=== PATIENT | male | born 1955 | race Caucasian/White ===

== ENCOUNTER → 2016-05-28 | Outpatient (CLI) | payer BC ==
--- NOTE | 2016-05-28 20:14 | PN ---
60-year-old gentleman who has been followed in the sleep center for treatment of obstructive sleep apnea/hypopnea syndrome. Patient is on treatment with CPAP every night for the whole night. I checked his CPAP unit. CPAP pressure is 12 cm of water. Usage is 30 out of 30 nights for more than 4 hours. No snoring with the machine. No sleepiness during the day. [place] Sleepiness Scale is 6. MEDICATIONS: 1. Losartan. 2. Potassium supplement. During physical exam gentleman without distress. VITAL SIGNS: BP 142/87, HR 78, RR 16. Height 6 feet 1 inch, weight 296. BMI 39.0. Temperature 98.0 oxygen saturation at room air 95%. HEENT: PERRLA, EOMI evaluation of oropharynx showed low position of soft palate, Mallampati 4. HEENT: PERRLA, EOMI. LUNGS: Clear. HEART: S1, S2 regular. ABDOMEN: Obese. EXTREMITIES: No edema. CENTRAL NERVOUS SYSTEM: No focal deficits. IMPRESSION: 1. Obstructive sleep apnea/hypopnea syndrome on control with CPAP at 12 cm of water. Patient demonstrated 100% compliance with treatment, benefiting from treatment. 2. Obesity. Patient lost weight on 5 pounds since last year. 3. Hypertension. 4. History of acid reflux in the past. 5. Patient grinding teeth using mouth guard. PLAN: 1. Continue treatment with CPAP every night for the whole night. 2. Prescription for all necessary CPAP supplies, including tube, mask, filters. 3. Continue losing weight. 4. Sleep hygiene with regular time in bed for at least 8 hours. 5. No driving if feeling any sleepiness. Thank you very much for allowing me to participate in the management of your patient. Sincerely, Bharathi Toure MD, PhD, FAASM. Diplomat of [place], Sleep Medicine Board by [place] of [employer] Medicine Seam Sewer of [facility] [place]
== END | disposition home or self-care (01) ==
LOC: SLEEP 16:47
PROVIDERS: ATTEND Internal Medicine
DX: G47.33 Obstructive sleep apnea (adult) (pediatric) (principal); E66.9 Obesity, unspecified; I10 Essential (primary) hypertension; Z87.898 Personal history of other specified conditions; Z79.899 Other long term (current) drug therapy; Z68.39 Body mass index [BMI] 39.0-39.9, adult

== ENCOUNTER → 2018-04-21 | Outpatient (CLI) | payer BC ==
--- NOTE | 2018-04-21 16:59 | PN ---
PROGRESS NOTE DATE OF SERVICE: 04/21/2018 This patient is a 62-year-old gentleman who has been followed in Sleep Center for treatment of obstructive sleep apnea-hypopnea syndrome. Patient continues to use his CPAP equipment every night for the whole night without significant problems. No snoring with the machine. [place] Sleepiness Scale today is 6. I checked the patient's CPAP unit. CPAP pressure is 12 cm of water. Usage is 100% of the nights for more than 4 hours, average usage 6.42 hours. MEDICATIONS: Losartan. PHYSICAL EXAMINATION: GENERAL: A pleasant gentleman without distress. VITAL SIGNS: BP 150/86, HR 76, RR 18, height 6 feet 1 inch, weight 288.6; 4 pounds more than during the previous visit but 8 pounds less than the visit 2 years ago. Body mass index 37.9, temperature 98.2, oxygen saturation at room air 94% HEENT: PERRLA, EOMI. Evaluation of oropharynx showed tongue protrudes midline. Low position of soft palate. NECK: Supple. No JVD. Thyroid is not palpable. LUNGS: Clear to percussion and to auscultation. Good air exchange. No wheezing or rhonchi. HEART: S1, S2 regular. No murmurs, gallops or rubs. ABDOMEN: Slightly obese. EXTREMITIES: No clubbing or cyanosis. POWER CLEANER OPERATOR: Awake, alert, and oriented X3. Cranial nerves 2 to 7 intact. There is no fasciculation or atrophy. noted. No focal deficits observed. IMPRESSION: 1. Obstructive sleep apnea-hypopnea syndrome. Patient demonstrated 100% compliance with treatment, benefitting from treatment. 2. Obesity. 3. Hypertension. 4. History of acid reflux in the past. 5. Patient continues to use mouth guard for prevention of grinding teeth. PLAN: 1. Patient will continue to use CPAP equipment every night for the whole night. 2. Prescription to replace CPAP unit. 3. We will maintain all necessary prescriptions for CPAP supplies. 4. Losing weight. 5. Sleep hygiene with regular time in bed for at least 8 hours. 6. No driving if feeling any sleepiness. Thank you very much for allowing me to participate in the management of your patient. Sincerely, Bharathi Toure MD, PhD, FAASM Diplomat of [place] [employer] Special[employer] Board of Internal Medicine [employer] Mechanic of [facility] [place] MMODL / IJN: [id number] /
== END ==
LOC: SLEEP 15:46
PROVIDERS: ATTEND Internal Medicine
DX: G47.33 Obstructive sleep apnea (adult) (pediatric) (principal); E66.9 Obesity, unspecified; I10 Essential (primary) hypertension; K21.9 Gastro-esophageal reflux disease without esophagitis; Z99.89 Dependence on other enabling machines and devices; Z79.899 Other long term (current) drug therapy

== ENCOUNTER → 2018-09-14 | Outpatient (CLI) | payer BC ==
--- NOTE | 2018-09-14 17:34 | PN ---
PROGRESS NOTE DATE OF SERVICE: 09/14/2018 This patient is a 62-year-old gentleman who has been followed in Sleep Center for treatment of obstructive sleep apnea-hypopnea syndrome. Recently the patient received a new CPAP unit. The patient is able to use CPAP equipment every night for the whole night. He likes his new machine. No problems related to humidity or pressure. I checked his CPAP unit. CPAP pressure is 12 cm of water. Usage is 100% of the time; 30/30 nights for more than 4 hours. Average usage 6.5 hours. Leak is borderline at 36 L/minute. The patient is using his nasal pillows. Possibly patient may open his mouth sometimes, although there is no dryness in his mouth. Apnea-hypopnea index 0.7, which is absolutely normal. MEDICATIONS: Losartan and potassium supplement. PHYSICAL EXAMINATION: GENERAL: A pleasant patient in no distress. VITAL SIGNS: BP 154/92, HR 62, RR 16, weight 293, temperature 97.8, oxygen saturation at room air 97%. HEENT: PERRLA, EOMI. Evaluation of oropharynx showed tongue protrudes midline. Low position of soft palate. NECK: Supple. No JVD. Thyroid is not palpable. LUNGS: Clear to percussion and to auscultation. Good air exchange. No wheezing or rhonchi. HEART: S1, S2 regular. No murmurs, gallops or rubs. ABDOMEN: Obese. EXTREMITIES: No clubbing or cyanosis. SQL CONSULTANT: Awake, alert, and oriented X3. Cranial nerves 2 to 7 intact. There is no fasciculation or atrophy. noted. No focal deficits observed. IMPRESSION: 1. Obstructive sleep apnea-hypopnea syndrome. The patient demonstrated 100% compliance with treatment with his new CPAP unit. Normal respiration on CPAP, benefitting from treatment. 2. Obesity. 3. Hypertension. 4. History of acid reflux in the past. 5. History of grinding teeth. Patient uses a mouth guard. PLAN: 1. Patient will continue to use CPAP equipment every night for the whole night. 2. Losing weight. 3. Sleep hygiene with regular time in bed for at least 8 hours. 4. Precautions related to driving. No driving if feeling any sleepiness. 5. We will maintain all necessary prescriptions for CPAP supplies, including Sims FX nasal pillows, tubes, filters. 6. Follow-up visit in one year or earlier if the patient has any problems. Thank you very much for allowing me to participate in the management of your patient. Sincerely, Bharathi Toure MD, PhD, FAASM Diplomat of [employer] Board [employer] Specialties [employer] Board of Internal Medicine Bingo Cashier of [facility] [place] MMMARYANN / HERIBERTO: [id number] /
== END ==
LOC: SLEEP 15:52
PROVIDERS: ATTEND Internal Medicine
DX: G47.33 Obstructive sleep apnea (adult) (pediatric) (principal); E66.9 Obesity, unspecified; I10 Essential (primary) hypertension; K21.9 Gastro-esophageal reflux disease without esophagitis; G47.63 Sleep related bruxism; Z99.89 Dependence on other enabling machines and devices; Z79.899 Other long term (current) drug therapy

== ENCOUNTER → 2019-04-06 | Outpatient (CLI) | payer BC ==
--- NOTE | 2019-04-06 17:41 | PN ---
PROGRESS NOTE DATE OF SERVICE: 04/06/2019 This patient is a 63-year-old gentleman who has been followed in the sleep center for treatment of obstructive sleep apnea-hypopnea syndrome. The patient successfully continues to use CPAP equipment every night for the whole night. Sometimes his hears some noise of breathing during the night. [place] Sleepiness Scale today is 7. I checked his CPAP unit. CPAP pressure is 12 cm of water. Usage is 30/30 nights for more than 4 hours with average usage 6.8 hours per night. Leak is 28 L/minute, which is high for the nasal pillow mask. Apnea-hypopnea index at the same time is only 0.5, which is absolutely normal. CURRENT MEDICATIONS: Losartan and potassium supplement. PHYSICAL EXAMINATION: GENERAL: A pleasant patient in no distress. VITAL SIGNS: BP 137/79, HR 66, RR 16. Height 6 feet 2 inches, weight 292.4, body mass index 37.4. Temperature 98.1, oxygen saturation at room air 96%. HEENT: PERRLA, EOMI. Evaluation of oropharynx showed tongue protrudes midline. Low position of soft palate. Mallampati IV. NECK: Supple. No JVD. Thyroid is not palpable. LUNGS: Clear to percussion and to auscultation. Good air exchange. No wheezing or rhonchi. HEART: S1, S2 regular. No murmurs, gallops or rubs. ABDOMEN: Obese. EXTREMITIES: No clubbing or cyanosis. REVENUE STAMP CLERK: Awake, alert, and oriented X3. Cranial nerves 2 to 7 intact. There is no fasciculation or atrophy noted. No focal deficits observed. IMPRESSION: 1. Obstructive sleep apnea-hypopnea syndrome. Patient demonstrated 100% compliance with treatment, benefitting from treatment. 2. High leak reading from the machine. Possibly patient opens his mouth. 3. Obesity. 4. Hypertension. 5. History of acid reflux. 6. History of grinding teeth. PLAN: 1. Patient will continue to use CPAP equipment every night for the whole night. 2. Prescription for chin strap. 3. Other options might include a full-face mask, but I believe it would be less comfortable for the patient. 4. No driving if feeling any sleepiness. 5. Sleep hygiene with regular time in bed for 7-1/2 to 8 hours. 6. Follow-up visit in one year, or earlier if the patient has any problems. 7. I will maintain prescriptions for all necessary CPAP supplies, including mask, tube, filters. Thank you very much for allowing me to participate in the management of your patient. Sincerely, Bharathi Toure MD, PhD, FAASM Diplomat of [place] [employer] Medical Specialties [employer] Board of Internal Medicine Web Sizer of [facility] [place] MMODL / HERIBERTO: [id number] /
== END | disposition home or self-care (01) ==
LOC: SLEEP 16:14
PROVIDERS: ATTEND Internal Medicine
DX: G47.33 Obstructive sleep apnea (adult) (pediatric) (principal); E66.9 Obesity, unspecified; I10 Essential (primary) hypertension; Z68.37 Body mass index [BMI] 37.0-37.9, adult; Z99.89 Dependence on other enabling machines and devices; Z87.19 Personal history of other diseases of the digestive system; Z79.899 Other long term (current) drug therapy

== ENCOUNTER → 2020-04-11 | Outpatient (CLI) | payer BC ==
--- NOTE | 2020-04-11 20:58 | SFUN ---
SLEEP CENTER FOLLOW UP NOTE DATE OF SERVICE: 04/11/2020 This patient is a 64-year-old gentleman who has been followed in the sleep center for treatment of obstructive sleep apnea-hypopnea syndrome. The patient continues to use CPAP equipment every night for the whole night. According to his , sometimes he still has episodes of stopped breathing during sleep. [place] Sleepiness Scale today is 6. I checked his CPAP unit. CPAP pressure is 12 cm of water. Usage is 30/30 nights for more than 4 hours with average usage 6.5 hours per night. Leak is 23 L/minute, which is borderline. Apnea-hypopnea index is 0.7, which is perfect. The patient's weight has decreased by about 11 pounds since his previous visit. MEDICATIONS: Losartan 100 mg once a day. PHYSICAL EXAMINATION: GENERAL: A pleasant patient in no distress. VITAL SIGNS: BP 143/79, HR 64, RR 15, height 6 feet 1 inch, weight 281, BMI 37.0, temperature 98.5, oxygen saturation at room air 98%. HEENT: PERRLA, EOMI. Evaluation of oropharynx showed tongue protrudes midline. Extremely low position of soft palate. Mallampati IV. NECK: Supple. No JVD. Thyroid is not palpable. LUNGS: Clear to percussion and to auscultation. Good air exchange. No wheezing or rhonchi. HEART: S1, S2 regular. No murmurs, gallops or rubs. ABDOMEN: Obese. EXTREMITIES: No clubbing or cyanosis. PRESS HAND SUPERVISOR: Awake, alert, and oriented X3. Cranial nerves 2 to 7 intact. There is no fasciculation or atrophy. noted. No focal deficits observed. IMPRESSION: 1. Obstructive sleep apnea-hypopnea syndrome. The patient demonstrated 100% compliance with treatment, benefitting from treatment. 2. Episodes of stopped breathing during sleep according to the patient's , although apnea-hypopnea index reading from the machine is normal. 3. Obesity. 4. Hypertension. 5. History of acid reflux. 6. History of grinding teeth. 7. Sometimes the patient complains of noise from the machine. PLAN: 1. I changed the regimen of the CPAP to automatic. Range of the pressure is 9 to 16 cm of water. 2. Patient will continue to use PAP equipment every night for the whole night. 3. Sleep hygiene with regular time in bed for at least 7-1/2 to 8 hours. 4. Precautions related to driving. No driving if feeling sleepiness. 5. I will maintain all necessary prescription for PAP supplies including mask, tube, filters. 6. Watching weight. 7. Follow-up visit in 6 months or earlier if patient has any problems. 8. Sometimes the patient complains of noise from the machine. The machine should be checked and replaced, if necessary. Thank you very much for allowing me to participate in the management of your patient. Sincerely, Bharathi Torue MD, PhD, FAASM Diplomat of [place] Board of Medical Specialties Belgian Board of Internal Medicine Data Control Clerk Supervisor of [facility] [place] MMODL / IJN: [id number] /
== END | disposition home or self-care (01) ==
LOC: SLEEP 16:30
PROVIDERS: ATTEND Internal Medicine
DX: G47.33 Obstructive sleep apnea (adult) (pediatric) (principal); Z53.9 Procedure and treatment not carried out, unspecified reason

== ENCOUNTER 2021-01-16 07:40 | Day surgery (SDC) | payer BC ==
[2021-01-13 08:48] VITALS: BMI 34.9
[2021-01-16] MEDS ORDERED: LACTATED RINGERS 1,000 ML IV SCH (07:46)
[2021-01-16 08:38] VITALS: TEMP 97.7
[2021-01-16] MEDS ORDERED: LIDOCAINE 1% (10MG/ML) FOR IV START INTRADERMA ONE (08:44)
--- NOTE | 2021-01-16 09:27 | P.GSHP ---
History of Present Illness H&P Date: 01/16/21 Chief Complaint: Screening colonoscopy This is a 65-year-old male who presents today for screening colonoscopy. Patient denies a significant GI complaints. Past Medical History Past Medical History: Hypertension, Sleep Apnea/CPAP/BIPAP Additional Past Medical History / Comment(s): C-PAP MACHINE, BPH. History of Any Multi-Drug Resistant Organisms: None Reported Past Surgical History: Tonsillectomy Additional Past Surgical History / Comment(s): COLONOSCOPY Past Anesthesia/Blood Transfusion Reactions: No Reported Reaction Past Psychological History: No Psychological Hx Reported Smoking Status: Former smoker Past Alcohol Use History: None Reported Additional Past Alcohol Use History / Comment(s): QUIT SMOKING OVER 25 YEARS AGO. Past Drug Use History: None Reported - Past Family History Mother Family Medical History: No Reported History Medications and Allergies Home Medications Medication Instructions Recorded Confirmed Type Losartan Potassium 100 mg PO DAILY 01/13/21 01/16/21 History Multivit-Min/FA/Lycopen/Lutein 1 each PO DAILY 01/13/21 01/16/21 History [Centrum Silver Men Tablet] Vit C/E/Zn/Coppr/Lutein/Zeaxan 1 each PO DAILY 01/13/21 01/16/21 History [Preservision Areds 2 Softgel] Allergies Allergy/AdvReac Type Severity Reaction Status Date / Time No Known Allergies Allergy Verified 01/13/21 08:51 Surgical - Exam Vital Signs Temp Pulse Resp BP Pulse Ox 97.7 F 68 16 199/91 97 01/16/21 08:26 01/16/21 08:26 01/16/21 08:26 01/16/21 08:26 01/16/21 08:26 - General well developed, well nourished, no distress - Eyes PERRL - ENT normal pinna - Neck no masses - Respiratory normal expansion - Cardiovascular Rhythm: regular - Abdomen Abdomen: soft, non tender Assessment and Plan Assessment: We'll perform screening colonoscopy.
[2021-01-16] MEDS ORDERED: PROPOFOL 10 MG/ML 20 ML VIAL IV ONE (09:29)
--- NOTE | 2021-01-16 09:44 | P.OP ---
Date of Procedure: 01/16/21 Preoperative Diagnosis: Screening colonoscopy Postoperative Diagnosis: Mild diverticulosis Procedure(s) Performed: Colonoscopy Anesthesia: MAC Surgeon: Mitch Sierra Pathology: none sent Condition: stable Disposition: PACU Description of Procedure: The patient's placed on the endoscopy table lateral position. He received IV sedation. Digital rectal exam was performed which revealed no abnormalities. Possible colonoscope was then placed patient anus and passed throughout the entire colon. The ileocecal valve was visualized. Cecum, ascending and transverse colon appeared normal. The descending; was mild diverticular changes. Scope was then brought back the rectum this appeared normal. Scope withdrawn the patient.
[2021-01-16 10:04] VITALS: BP 185/63; PULSE 68; RESP 16
== END 2021-01-16 10:20 | disposition home or self-care (01) ==
LOC: ORWHC2ENDO 07:40
PROVIDERS: ATTEND Surgery
DX: Z12.11 Encounter for screening for malignant neoplasm of colon (principal); I10 Essential (primary) hypertension; G47.30 Sleep apnea, unspecified; N40.0 Benign prostatic hyperplasia without lower urinary tract symptoms; Z98.890 Other specified postprocedural states; Z87.891 Personal history of nicotine dependence; K57.30 Diverticulosis of large intestine without perforation or abscess without bleeding
CPT/HCPCS: J2704; G0121

== ENCOUNTER → 2021-05-22 | Outpatient (CLI) | payer BC ==
--- NOTE | 2021-05-22 17:24 | SFUN ---
SLEEP CENTER FOLLOW UP NOTE DATE OF SERVICE: 05/22/2021 This 65-year-old gentleman has been followed in Sleep Center for treatment of obstructive sleep apnea-hypopnea syndrome. I saw this patient several months ago, but because his machine was noisy, he received a loaner, and now his machine has been fixed and he has received it back. Now he is satisfied, using the machine every night. The machine does not create any noise. Everything works well. [place] Sleepiness Scale today is 7, which is in normal range. I checked his CPAP unit. Range of the pressure is 9 to 20. Usage for the last month is 03/25 nights, but the patient just received his machine recently. Leak is 12 L/minute. Apnea-hypopnea index 0.6. MEDICATIONS: Losartan 100 mg once a day. PHYSICAL EXAMINATION: GENERAL: Pleasant patient in no distress. VITAL SIGNS: BP 153/83, HR 64, RR 16, height 6 feet 1 inch, weight 275, body mass index 36.2, temperature 98.6, oxygen saturation at room air 98%. HEENT: PERRLA, EOMI, evaluation of oropharynx showed tongue protrudes midline. Extremely low position of soft palate; Mallampati IV. NECK: Supple, no JVD. Thyroid is not palpable. LUNGS: Clear to percussion and to auscultation. Good air exchange. No wheezing or rhonchi. HEART: S1, S2 regular. No murmurs, gallops, or rubs. ABDOMEN: Soft and nontender. Bowel sounds are present. No organomegaly appreciated. EXTREMITIES: No clubbing or cyanosis. FLOOR CLERK: Awake, alert, and oriented X3. Cranial nerves 2 to 7 intact. There is no fasciculation or atrophy. noted. No focal deficits observed. IMPRESSION: 1. Obstructive sleep apnea-hypopnea syndrome. Patient demonstrated good compliance with treatment. Normal respiration on CPAP. 2. Hypertension. 3. History of acid reflux. 4. Obesity. 5. History of grinding teeth. PLAN: 1. Patient will continue to use PAP equipment every night for the whole night. 2. Sleep hygiene with regular time in bed for at least 7-1/2 to 8 hours. 3. Precautions related to driving. No driving if feeling sleepiness. 4. I will maintain all necessary prescription for PAP supplies including mask, tube, filters. 5. Watching weight. 6. Follow-up visit in 6 months or earlier if patient has any problems. Thank you very much for allowing me to participate in the management of your patient. Sincerely, Bharathi Toure MD, PhD, FAASM Diplomat of [place] Board of Medical Specialties Sleep Medicine Board of [place] Board of Internal Medicine Earth Science Technical Officer of [facility] [place] MMMARYANN / HERIBERTO: [id number] /
== END ==
LOC: SLEEP 16:34
PROVIDERS: ATTEND Internal Medicine
DX: G47.33 Obstructive sleep apnea (adult) (pediatric) (principal); I10 Essential (primary) hypertension; K21.9 Gastro-esophageal reflux disease without esophagitis; E66.9 Obesity, unspecified; Z68.36 Body mass index [BMI] 36.0-36.9, adult; Z79.899 Other long term (current) drug therapy

== ENCOUNTER → 2023-01-14 | Outpatient (CLI) | payer BC ==
--- NOTE | 2023-01-14 17:11 | P.PN ---
Subjective DATE: 01/14/2023 FOLLOW UP VISIT. Patient with obstructive sleep apnea hypopnea syndrome return to sleep center for follow-up visit. Information from previous visit have been reviewed. Patient is using PAP equipment every night for the whole night, getting PAP supplies in time. The patient does not have significant problems with the mask, PAP unit and humidification. [place] sleepiness scale is, which is normal. I checked information from PAP unit. PAP unit pressure 9-20, average 11.2 cm H2O. Usage is 100 % for more then 4 hours, average 6.5 hours per night. Leak is 12 l/m, which is in acceptable range. Apnea Hypopnea Index is 0.6, which is normal. MEDICATIONS:1. Losartan 100 mg once a day 2. Flomax 0.4 mg once a day During physical exam: GENERAL: A pleasant patient without any distress. VITAL SIGNS: BP 148/77, HR 64, RR 16 , weight 250.6, temperature 98.1, oxygen saturation at room air 98 % . HEENT: PERRLA, EOMI.low position of soft palate, Mallapati 4 . NECK: Supple. No JVD. LUNGS: Clear to percussion and to auscultation. Good air exchange. No wheezing or rhonchi. HEART: S1, S2 regular. ABDOMEN: Soft and nontender.[] EXTREMITIES: No clubbing or cyanosis. GEOPHYSICAL MANAGER: Awake, alert, and oriented x3. No focal deficit. Impressions: 1. Obstructive sleep apnea-hypopnea syndrome. Patient demonstrated great compliance with treatment, benefiting from treatment. 2. Mild obesity, patient lost 17 pounds since previous visit. 3. Hypertension. 4. History of acid reflux. 5. BPH. 6. History of grinding teeth. Plan: 1. Continue using PAP equipment every night for the whole night. 2. To change air filter at least 1-2 times per month. 3. PAP unit should stay lower then position of the head. 4. Advised patient to remove all remaining water from humidifier canister daily and make it dry after each usage. Refill canister with fresh distilled water before each usage. 5. Sleep hygiene with regular time in bed for at least 8 hours. 6. Precautions related to driving. No driving if feel any sleepiness. 7. I will maintain prescription for PAP supplies including mask, tube, filters. 8. Follow up visit in 6 months or earlier if patient has any problems. 9. Watching weight. Thank you very much for allowing me to participate in the management of your patient. Bharathi Toure MD, PhD, FAASM. Diplomat of [place] Board of Sleep Medicine, Sleep Medicine Board by [place] Board of Internal Medicine Assembly Supervisor of [facility] [place]
== END ==
LOC: 3 N SLEEP 16:20
PROVIDERS: ATTEND Internal Medicine
DX: G47.33 Obstructive sleep apnea (adult) (pediatric) (principal); E66.9 Obesity, unspecified; I10 Essential (primary) hypertension; K21.9 Gastro-esophageal reflux disease without esophagitis; N40.0 Benign prostatic hyperplasia without lower urinary tract symptoms; G47.63 Sleep related bruxism; Z79.899 Other long term (current) drug therapy; Z99.89 Dependence on other enabling machines and devices
CPT/HCPCS: 99212

== ENCOUNTER → 2023-05-10 | Outpatient (CLI) | payer BC ==
--- NOTE | 2023-05-10 11:00 | P.PN ---
Subjective DATE: 05/10/2023 FOLLOW UP VISIT. Patient with obstructive sleep apnea hypopnea syndrome return to sleep center for follow-up visit. Information from previous visit have been reviewed. This is first visit after patient received new CPAP unit. Patient is using PAP equipment every night for the whole night, getting PAP supplies in time. The patient does not have significant problems with the mask, PAP unit and humidification. [place] sleepiness scale is 10, which is borderline. I checked information from PAP unit. PAP unit pressure 9-14, average 11.1 cm H2O. Usage is 100 % for more then 4 hours, average 6.8 hours per night. Leak is 9.2 l/m, which is in acceptable range. Apnea Hypopnea Index is 0.9, which is normal. MEDICATIONS:1. Flomax 0.4 mg once a day 2. Losartan 100 mg once a day During physical exam: GENERAL: A pleasant patient without any distress. VITAL SIGNS: BP 154/77, HR 62, RR 12 , weight 250.8, temperature 98.0, oxygen saturation at room air 96 % . HEENT: PERRLA, EOMI.low position of soft palate, Mallapati 4 . NECK: Supple. No JVD. LUNGS: Clear to percussion and to auscultation. Good air exchange. No wheezing or rhonchi. HEART: S1, S2 regular. ABDOMEN: Soft and nontender.[] EXTREMITIES: No clubbing or cyanosis. DRIER OPERATOR HEAD: Awake, alert, and oriented x3. No focal deficit. Impressions: 1. Obstructive sleep apnea-hypopnea syndrome. Patient demonstrated great compliance with treatment, benefiting from treatment. 2. Hypertension. 3. BPH. 4. History of acid reflux. 5. Mild obesity, no changes of weight compared with previous visit. 6. History of grinding teeth. Plan: 1. Continue using PAP equipment every night for the whole night. 2. To change air filter at least 1-2 times per month. 3. PAP unit should stay lower then position of the head. 4. Advised patient to remove all remaining water from humidifier canister daily and make it dry after each usage. Refill canister with fresh distilled water before each usage. 5. Sleep hygiene with regular time in bed for at least 8 hours. 6. Precautions related to driving. No driving if feel any sleepiness. 7. I will maintain prescription for PAP supplies including mask, tube, filters. 8. Watching weight. 9. Follow up visit in 6 months or earlier if patient has any problems. Thank you very much for allowing me to participate in the management of your patient. Bharathi Toure MD, PhD, FAASM. Diplomat of [place] Board of Sleep Medicine, Sleep Medicine Board by [place] [employer] Medicine Sales Administrator of [facility] [place]
== END ==
LOC: 3 N SLEEP 10:23
PROVIDERS: ATTEND Internal Medicine
DX: G47.33 Obstructive sleep apnea (adult) (pediatric) (principal); I10 Essential (primary) hypertension; N40.0 Benign prostatic hyperplasia without lower urinary tract symptoms; E66.9 Obesity, unspecified; K21.9 Gastro-esophageal reflux disease without esophagitis; G47.63 Sleep related bruxism; Z99.89 Dependence on other enabling machines and devices; Z79.899 Other long term (current) drug therapy
CPT/HCPCS: 99212

== ENCOUNTER → 2023-12-23 | Outpatient (CLI) | payer BC ==
[2023-12-23 16:50] VITALS: BP 147/87; PULSE 54; RESP 12; TEMP 97.9
--- NOTE | 2023-12-23 17:25 | P.PROGSL ---
Subjective DATE: 12/23/2023 FOLLOW UP VISIT. Patient with obstructive sleep apnea hypopnea syndrome return to sleep center for follow-up visit. Information from previous visit have been reviewed. Patient is using PAP equipment every night for the whole night, getting PAP supplies in time. The patient does not have significant problems with the mask, PAP unit and humidification. [place] sleepiness scale is 7, which is normal. I checked information from PAP unit. PAP unit pressure 9-14, average 10.2 cm H2O. Usage is 100% for more then 4 hours, average 6.2 hours per night. Leak is 20 l/m, which is in acceptable range. Apnea Hypopnea Index is 0.6, which is normal. MEDICATIONS have been reviewed, please see below. During physical exam: GENERAL: A pleasant patient without any distress. VITAL SIGNS: Please see below, weight is 264.6 lbs. HEENT: PERRLA, EOMI.low position of soft palate, Mallapati 4 . NECK: Supple. No JVD. LUNGS: Clear to percussion and to auscultation. Good air exchange. No wheezing or rhonchi. HEART: S1, S2 regular. ABDOMEN: Soft and nontender. Slightly obese EXTREMITIES: No clubbing or cyanosis. LAMP DEVELOPER: Awake, alert, and oriented x3. No focal deficit. Impressions: 1. Obstructive sleep apnea-hypopnea syndrome. Patient demonstrated great compliance with treatment, benefiting from treatment. 2. Obesity, BMI 34.8, patient increased weight on 11 pounds comparing with previous visit. 3. Hypertension. 4. BPH. 5. History of grinding teeth. 6. History of acid reflux. Plan: 1. Continue using PAP equipment every night for the whole night. 2. Sleep hygiene with regular time in bed for at least 7.5-8 hours 3. PAP unit should stay lower then position of the head. 4. Advised patient to remove all remaining water from humidifier canister daily and make it dry after each usage. Refill canister with fresh distilled water before each usage. 5. Watching and losing weight. 6. Precautions related to driving. No driving if feel any sleepiness. 7. I will maintain prescription for PAP supplies including mask, tube, filters. 8. Follow up visit in 6 months or earlier if patient has any problems. Thank you very much for allowing me to participate in the management of your patient. Bharathi Toure MD, PhD, FAASM. Diplomat of [employer], Sleep Medicine Board by [employer] Plant Utility Person of [facility] [place] Objective - Vital Signs Vital Signs: Vital Signs Temp 97.9 F 12/23/23 16:48 Pulse 54 L 12/23/23 16:48 Resp 12 12/23/23 16:48 BP 147/87 12/23/23 16:48 Pulse Ox 98 12/23/23 16:48 FiO2 Home Medications: Home Medications Medication Instructions Recorded Confirmed Type Losartan Potassium 100 mg PO DAILY 01/13/21 12/23/23 History Mv-Min/Folic/K1/Lycopen/Lutein 1 each PO DAILY 01/13/21 12/23/23 History [Centrum Silver Men Tablet] Vit C/E/Zn/Coppr/Lutein/Zeaxan 1 each PO DAILY 01/13/21 12/23/23 History [Preservision Areds 2 Softgel] Tamsulosin [Flomax] 0.4 mg PO DAILY 12/23/23 12/23/23 History
== END ==
LOC: 3 N SLEEP 16:20
PROVIDERS: ATTEND Internal Medicine
CPT/HCPCS: 99212

== ENCOUNTER → 2024-09-07 | Outpatient (CLI) | payer MEDICARE ==
[2024-09-07 17:16] VITALS: BP 149/81; PULSE 59; RESP 16; TEMP 97.8
--- NOTE | 2024-09-07 17:26 | P.PROGSL ---
Subjective DATE: 09/07/2024 FOLLOW UP VISIT. Patient with obstructive sleep apnea hypopnea syndrome return to sleep center for follow-up visit. Information from previous visit have been reviewed. Patient is using PAP equipment every night for the whole night, getting PAP supplies in time. The patient does not have significant problems with the mask, PAP unit and humidification. Orange sleepiness scale is 6, which is normal. I checked information from PAP unit. PAP unit pressure 9-14, average 10.6 cm H2O. Usage is 100% for more then 4 hours, average 7.8 hours per night. Leak is 10 l/m, which is in acceptable range. Apnea Hypopnea Index is 1.1, which is normal. MEDICATIONS have been reviewed, please see below. During physical exam: GENERAL: A pleasant patient without any distress. VITAL SIGNS: Please see below, weight is 261 lbs. HEENT: PERRLA, EOMI.low position of soft palate, Mallapati 4 . NECK: Supple. No JVD. LUNGS: Clear to percussion and to auscultation. Good air exchange. No wheezing or rhonchi. HEART: S1, S2 regular. ABDOMEN: Soft and nontender.[] EXTREMITIES: No clubbing or cyanosis. LIBRARY CONSULTANT: Awake, alert, and oriented x3. No focal deficit. Impressions: 1. Obstructive sleep apnea-hypopnea syndrome. Patient demonstrated great compliance with treatment, benefiting from treatment. 2. Hypertension. 3. BPH. 4. Obesity mild, BMI 34.4, patient lost 3 pounds comparing with previous visit. 5. Acid reflux. 6. History of grinding teeth. Plan: 1. Continue using PAP equipment every night for the whole night. 2. Sleep hygiene with regular time in bed for at least 7.5-8 hours 3. PAP unit should stay lower then position of the head. 4. Advised patient to remove all remaining water from humidifier canister daily and make it dry after each usage. Refill canister with fresh distilled water before each usage. 5. Watching weight. 6. Precautions related to driving. No driving if feel any sleepiness. 7. I will maintain prescription for PAP supplies including mask, tube, filters. 8. Follow up visit in 8 months or earlier if patient has any problems. Thank you very much for allowing me to participate in the management of your patient. Bharathi Toure MD, PhD, FAASM. Diplomat of [employer], Sleep Medicine Board by [employer] Boring Machine Operator of [facility] [place] Objective - Vital Signs Vital Signs: Vital Signs Temp 97.8 F 09/07/24 17:10 Pulse 59 L 09/07/24 17:10 Resp 16 09/07/24 17:10 BP 149/81 09/07/24 17:10 Pulse Ox 99 09/07/24 17:10 FiO2 Intake & Output 09/06/24 09/07/24 09/07/24 18:59 06:59 18:59 Weight 118.388 kg Home Medications: Home Medications Medication Instructions Recorded Confirmed Type Losartan Potassium 100 mg PO DAILY 01/13/21 09/07/24 History Mv-Min/Folic/K1/Lycopen/Lutein 1 each PO DAILY 01/13/21 09/07/24 History [Centrum Silver Men Tablet] Vit C/E/Zn/Coppr/Lutein/Zeaxan 1 each PO DAILY 01/13/21 09/07/24 History [Preservision Areds 2 Softgel] Tamsulosin [Flomax] 0.4 mg PO DAILY 12/23/23 09/07/24 History
== END ==
LOC: 3 N SLEEP 16:28
PROVIDERS: ATTEND Internal Medicine
DX: G47.33 Obstructive sleep apnea (adult) (pediatric) (principal); I10 Essential (primary) hypertension; N40.0 Benign prostatic hyperplasia without lower urinary tract symptoms; E66.9 Obesity, unspecified; K21.9 Gastro-esophageal reflux disease without esophagitis; Z68.34 Body mass index [BMI] 34.0-34.9, adult; Z99.89 Dependence on other enabling machines and devices
CPT/HCPCS: 99212